=== PATIENT | female | born 1940 | race Caucasian/White ===

== ENCOUNTER 2016-11-12 12:32 | Emergency (ER) | payer BC ==
[~2016-11-12] VITALS: Ht 160 cm; Wt 58.0 kg
[2016-11-12 12:33] VITALS: TEMP 36.8; Ht 160 cm; Wt 58.0 kg
--- NOTE | 2016-11-12 13:24 | DIAGNOSTIC IMAGING REPORT ---
LEFT SHOULDER MIN 2 VIEWS ROUTINE CLINICAL HISTORY: d3 trauma. Pain. COMPARISON: None. DISCUSSION: Moderate degenerative change. No evidence for fracture or dislocation. Cortical margins are intact. Degenerative change. No acute process. IMPRESSION: Negative study. Electronically signed by: Benny Colon M.D. 11/12/2016 1:22 PM Dictated Date/Time: 11/12/2016 1:22 PM
[2016-11-12] MEDS ORDERED: PSYL48.59 PO (13:45)
[2016-11-12] MEDS ORDERED: BIOTCAP2 PO (13:45)
[2016-11-12] MEDS ORDERED: MAGN400T6 PO (13:45)
[2016-11-12] MEDS ORDERED: CHOL100010 PO (13:45)
[2016-11-12] MEDS ORDERED: ASPI81TA28 PO (13:45)
[2016-11-12] MEDS ORDERED: BNC/4025 PO (13:45)
[2016-11-12] MEDS ORDERED: OMEG120013 PO (13:45)
[2016-11-12] MEDS ORDERED: CALC500C70 PO (13:45)
[2016-11-12] MEDS ORDERED: COEN200C17 PO (13:45)
[2016-11-12] MEDS ORDERED: ATEN-173 PO (13:45)
[2016-11-12] MEDS ORDERED: AMLO-110 PO (13:45)
[2016-11-12] MEDS ORDERED: POTA20TA16 PO (13:45)
[2016-11-12] MEDS ORDERED: [UNRECOGNIZED DRUG - CODE] PO (13:45)
[2016-11-12] MEDS ORDERED: ASCA500 PO (13:45)
[2016-11-12] MEDS ORDERED: IBUP-1050 PO (13:52)
[2016-11-12] MEDS ORDERED: HYDR-5688 PO (14:16)
[2016-11-12 14:36] VITALS: BP 118/59; PULSE 67; O2SAT 94
--- NOTE | 2016-11-12 17:46 | EMERGENCY ROOM VISIT NOTE ---
ED Visit Note First contact with patient: 13:27 CHIEF COMPLAINT: Left Shoulder injury HISTORY OF PRESENT ILLNESS: This 76-year-old white female patient injured herself last night. She was in the bathroom and was sitting on the toilet. She attempted to use her left arm to post off of the toilet seat so that she could stand up. Her hand gave way and she fell onto the floor, landing on her left shoulder. She had immediate onset of pain. She has been unable to use the arm since. She has known history of weakness and pain in the shoulder. She states she saw her PCP 2 weeks ago and had a cortisone injection. It did not seem to help. She has not seen an orthopedic office for her shoulder. Right-hand dominant. Her daughter accompanies her today. She has a known history of ALS. she feels she has lost more motion. No numbness or tingling. She did try Tylenol as well as Ultram without improvement. Pain is 10/10. REVIEW OF SYSTEM: HEENT: No dizziness, visual problems, hearing loss, or tinnitus. There is no difficulty swallowing and no oral lesions are present. LYMPH: No adenopathy. PULMONARY: No cough, shortness of breath, sputum production or hemoptysis. CARDIOVASCULAR: No chest pain, palpitations, shortness of breath or peripheral edema. GASTROINTESTINAL: No diarrhea, constipation, nausea, vomiting, or abdominal pain. GENITOURINARY: No dysuria, frequency, urgency or nocturia. NEUROLOGIC: No muscle tenderness, epilepsy or history of neurological problems. Positive history of muscle weakness. MUSCULOSKELETAL: No history of joint tenderness/swelling. Positive history of arthritis and arthralgias. SKIN: No rashes or lesions. PSYCHIATRIC: No history of depression or mental illness. ENDOCRINE: No history of diabetes, thyroid disorders, or abnormal hair growth. PMH: Significant for ALS, hypertension, osteoarthritis. Previous surgeries: None Allergies: NKDA Current medications: Reviewed and filed in patient's chart Family history: Noncontributory. SOCIAL HISTORY: Patient lives at home. Non-smoker, no excessive alcohol use. PHYSICAL EXAM: Vital Signs: Reviewed nurse's notes. Afebrile. General: Well- developed, well-nourished, elderly white female, in obvious discomfort. No acute distress. Laying on a bed. Alert and oriented. Skin: Warm and dry with good turgor. No rashes or lesions. No ecchymosis or erythema. The patient is not diaphoretic. No abrasions. Musculoskeletal: Patient has no obvious asymmetry or deformity to the shoulder. She has very limited active motion. Abduction as well as for flexion. She cannot lift it above approximately 45 in either direction. She has intact passive and active internal Dr. rotation. Range of motion is also limited secondary to pain. No discomfort palpation over the fingers, hand, wrist, forearm, elbow, bicep, or tricep. She is sore with palpation over the subacromial space and rotator cuff attachments. Mild soreness with palpation over the posterior musculature. Full active motion of the fingers, wrist, and elbow. Supraspinatus testing, Morgan testing, and Neer impingement testing are unable to be completed secondary to limited motion and pain. Because of the pain. Neurologic: Gross sensation is intact across both upper extremities by soft touch. Peripheral pulses are 2+. EMERGENCY DEPARTMENT COURSE: Radiographic Imaging of the shoulder does not show any fractures, dislocations, or subluxation. She does have a high riding humeral head suggestive of rotator cuff insufficiency. Arthritic changes of the AC joint are noted. DIAGNOSIS: Left shoulder pain. Rotator cuff insufficiency. DISCHARGE INSTRUCTIONS & TREATMENT: Patient was educated regarding today's findings. Conservative care measures were discussed. Sling was provided. She should wear this at all times other than bathing. She will likely feel better sleeping upright. Perception was provided for [place] 5mg to be used every 6 hours as needed for severe pain. Driving precautions were given. She may continue to use ibuprofen for Rest the mild pain. Ice and elevate frequently to reduce pain and swelling. She will likely need a physical therapy referral and orthopedic referral. She will contact her physician tomorrow. I do not suspect additional injury from her fall. Return to the ED for any other concerns. She was reassured that I find no evidence for fracture or dislocation. Current/Historical Medications Scheduled Amlodipine (Norvasc), 5 MG PO DAILY Ascorbic Acid (Vitamin C), 500 MG PO DAILY Aspirin (Aspirin Ec), 81 MG PO DAILY Atenolol (Tenormin), 25 MG PO DAILY Beta Carotene (Beta Carotene), 15,500 INTER.UNIT PO DAILY Biotin (Biotin 5000), 5 MG PO DAILY Calcium/Vitamin D (Os-Rashad 500 Plus D), 1 TAB PO DAILY Cholecalciferol (Vitamin D), 1,000 INTER.UNIT PO DAILY Coenzyme Q10 (Ubidecarenone) (Co-Enzyme Q10), 200 MG PO DAILY Ibuprofen (Advil), 200-600 MG PO Q6 Magnesium Oxide (Mag-Ox), 3 TABS PO DAILY Olmesartan/Hctz (Benicar Hct 40/25), 1 TAB PO DAILY [place]-3 Fatty Acids (Fish Oil), 1,200 MG PO BID Potassium Ext Rel (Klor-Con), 20 MEQ PO BID Psyllium (Metamucil), 1 DOSE PO DAILY Scheduled PRN Hydrocodone/Acetaminophen 5MG/325MG ([place] 5MG/325MG), 1-2 TABLET PO Q6H PRN for Pain Allergies Coded Allergies: No Known Allergies (Unverified , 11/12/16) Vital Signs Date Time Temp Pulse Resp B/P Pulse Ox O2 Delivery O2 Flow Rate FiO2 11/12/16 14:36 67 118/59 94 Room Air 11/12/16 12:33 36.8 73 20 130/63 98 Room Air Departure Information Impression Primary Impression: Left shoulder pain Dispostion Home / Self-Care Condition FAIR Prescriptions Hydrocodone/Acetaminophen 5MG/325MG ([place] 5MG/325MG) Tab 1-2 TABLET PO Q6H Y for Pain, #18 TAB For Initial Treatment Prov: Arturo Richter,P.A. 11/12/16 Forms HOME CARE DOCUMENTATION FORM, SPECIAL NARCOTICS INSTRUCTIONS, MOTRIN USE, IMPORTANT VISIT INFORMATION Patient Instructions My [facility] Additional Instructions Follow-up with your PCP for a physical therapy referral Call Dr. Forman's office for follow-up Motrin 600 mg every 6 hours with food as needed for pain [place] 1 to 2 tablets every 6 hours as needed for severe pain-no driving Use the sling as needed for support and comfort Ice to the shoulder frequently to reduce pain Gentle motion daily
== END 2016-11-12 14:57 | disposition home or self-care (01) ==
LOC: C.EDB 12:32 → C.EDD 14:57
DX: M25.512 Pain in left shoulder (principal); M25.812 Other specified joint disorders, left shoulder; S49.92XA Unspecified injury of left shoulder and upper arm, initial encounter; W18.11XA Fall from or off toilet without subsequent striking against object, initial encounter; I10 Essential (primary) hypertension; M19.90 Unspecified osteoarthritis, unspecified site; G12.21 Amyotrophic lateral sclerosis; Z79.82 Long term (current) use of aspirin; Z79.899 Other long term (current) drug therapy

== ENCOUNTER → 2017-03-14 | Outpatient (CLI) | payer BC ==
[~2017-03-14] MED LIST: AMLO-110 PO; ASCA500 PO; ASPI81TA28 PO; ATEN-173 PO; BIOTCAP2 PO; BNC/4025 PO; CALC500C70 PO; CHOL100010 PO; COEN200C17 PO; HYDR-5688 PO; IBUP-1050 PO; MAGN400T6 PO; OMEG120013 PO; POTA20TA16 PO; PSYL48.59 PO; [UNRECOGNIZED DRUG - CODE] PO
--- NOTE | 2017-03-14 17:10 | DIAGNOSTIC IMAGING REPORT ---
ULTRASOUND RIGHT LOWER EXTREMITY VENOUS CLINICAL HISTORY: Right leg swelling. COMPARISON STUDY: No priors. TECHNIQUE: Real-time, grayscale, and color Doppler sonography of the deep veins of the right lower extremity was performed from the inguinal crease to the calf. Compression and augmentation were utilized. FINDINGS: There is no sonographic evidence of deep venous thrombosis identified in the right lower extremity. The common femoral, superficial femoral, and popliteal veins are patent and normally compressible. The greater saphenous vein and the profunda femoris vein at the junction with the common femoral vein are clear. The visualized calf veins are patent. A complex popliteal cyst measures 4.6 x 1.1 x 1.7 cm. IMPRESSION: 1. There is no sonographic evidence of deep venous thrombosis identified in the right lower extremity. 2. Small complex popliteal cyst. Electronically signed by: Kristian Gallardo M.D. 03/14/2017 5:08 PM Dictated Date/Time: 03/14/2017 5:08 PM
== END | disposition home or self-care (01) ==
LOC: C.ULTR 16:31
PROVIDERS: ATTEND Family Medicine
DX: M79.89 Other specified soft tissue disorders (principal); R79.89 Other specified abnormal findings of blood chemistry; M71.21 Synovial cyst of popliteal space [Baker], right knee

== ENCOUNTER → 2017-03-14 | Outpatient (CLI) | payer BC | END | disposition home or self-care (01) | LOC: C.LABMFLN 10:05 | PROVIDERS: ATTEND Family Medicine | DX: M79.89 Other specified soft tissue disorders (principal) ==